=== PATIENT | female | born 1970 | race Caucasian/White ===

== ENCOUNTER 2016-09-08 10:49 | Emergency (ER) | payer OTHER ==
[~2016-09-08] VITALS: Ht 170.2 cm; Wt 86.2 kg
[~2016-09-08 10:49] MED LIST: B-122500 MCG SL; BACTRIM DS TAB1 EACH PO; CALCIUM 600 +1 EA12 PO; CIPRO500 MG PO; DAILY VITE1 EACH PO; FLAGYL500 MG PO; LAMICTAL100 MG PO; LISINOPRIL20 MG PO; NORCO 5-325 TA1 EACH PO; OXYCODONE HCL5 MG PO; PAIN RELIEF500 M1 PO; PERCOCET 7.5-31 EACH PO
[2016-09-08] MEDS ORDERED: ULTRAM50 MG PO (13:17)
[2016-09-08] MEDS ORDERED: ZOFRAN4 MG PO (13:17)
== END 2016-09-08 13:10 | disposition home or self-care (01) ==
LOC: ED 10:49
DX: R10.32 Left lower quadrant pain (principal); I10 Essential (primary) hypertension; Z98.84 Bariatric surgery status; Z90.710 Acquired absence of both cervix and uterus; Z90.49 Acquired absence of other specified parts of digestive tract; Z88.6 Allergy status to analgesic agent; Z88.8 Allergy status to other drugs, medicaments and biological substances; Z88.5 Allergy status to narcotic agent; Z88.1 Allergy status to other antibiotic agents; Z79.899 Other long term (current) drug therapy
CPT/HCPCS: 74000; 80053; 81001; 83690; 83735; 85025; 99283

== ENCOUNTER 2016-10-30 17:21 | Emergency (ER) | payer OTHER ==
[~2016-10-30] VITALS: Ht 170.2 cm; Wt 85.3 kg
[~2016-10-30 17:21] MED LIST changes: +ULTRAM50 MG PO; +ZOFRAN4 MG PO
[2016-10-30] MEDS ORDERED: PENICILLIN V P500 MG PO (17:47)
[2016-10-30] MEDS ORDERED: OXYCODONE HCL10 MG PO (17:47)
== END 2016-10-30 19:08 | disposition home or self-care (01) ==
LOC: ED 17:21
DX: R10.13 Epigastric pain (principal); I10 Essential (primary) hypertension; Z98.84 Bariatric surgery status; Z90.710 Acquired absence of both cervix and uterus; Z90.49 Acquired absence of other specified parts of digestive tract; Z88.6 Allergy status to analgesic agent; Z88.1 Allergy status to other antibiotic agents; Z88.8 Allergy status to other drugs, medicaments and biological substances; Z88.5 Allergy status to narcotic agent; Z79.899 Other long term (current) drug therapy; Z79.2 Long term (current) use of antibiotics
CPT/HCPCS: 74177; 80053; 81001; 82150; 83690; 85025; 96374; 96375; 99284; J1170; J2405; Q9967

== ENCOUNTER 2016-12-02 20:23 | Emergency (ER) | payer OTHER ==
[~2016-12-02] VITALS: Ht 170.2 cm; Wt 85.3 kg
[~2016-12-02 20:23] MED LIST changes: +OXYCODONE HCL10 MG PO; +PENICILLIN V P500 MG PO
== END 2016-12-02 22:45 | disposition home or self-care (01) ==
LOC: ED 20:23
DX: G89.29 Other chronic pain (principal); R10.13 Epigastric pain; R10.812 Left upper quadrant abdominal tenderness; I10 Essential (primary) hypertension; Z98.84 Bariatric surgery status; Z90.710 Acquired absence of both cervix and uterus; Z90.49 Acquired absence of other specified parts of digestive tract; Z88.6 Allergy status to analgesic agent; Z88.1 Allergy status to other antibiotic agents; Z88.8 Allergy status to other drugs, medicaments and biological substances; Z88.5 Allergy status to narcotic agent; Z79.899 Other long term (current) drug therapy
CPT/HCPCS: 80053; 82150; 83690; 85025; 96361; 96374; 99283; J2405; J7030

== ENCOUNTER 2018-04-20 19:43 | Emergency (ER) | payer OTHER ==
[~2018-04-20] VITALS: Ht 170.2 cm; Wt 81.7 kg
[~2018-04-20 19:43] MED LIST changes: +CITALOPRAM HBR40 MG PO; +TERBINAFINE HC250 MG PO; +TRAMADOL HCL50 MG PO
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
[2018-04-20] MEDS ORDERED: FENTANYL1 EACH TD (20:02)
[2018-04-20] MEDS ORDERED: BACLOFEN10 MG PO (20:03)
[2018-04-20] MEDS ORDERED: OXYCODONE HCL10 MG PO (20:04)
== END 2018-04-20 22:43 | disposition home or self-care (01) ==
LOC: ED 19:43
DX: G89.18 Other acute postprocedural pain (principal); M54.5 Low back pain; I10 Essential (primary) hypertension; Z88.6 Allergy status to analgesic agent; Z88.1 Allergy status to other antibiotic agents; Z88.5 Allergy status to narcotic agent; Z91.048 Other nonmedicinal substance allergy status; Z79.899 Other long term (current) drug therapy
CPT/HCPCS: 72131; 99283-25